=== PATIENT | female | born 2000 | race American Indian/Alaskan Native ===

== ENCOUNTER 2019-04-07 21:58 | Emergency (ER) | payer SELFPAY ==
[2019-04-08 00:18] VITALS: BP 117/59
--- NOTE | 2019-04-08 00:29 | Emergency Department Report ---
Chief Complaint: Anxiety Stated Complaint: HIGH BP Time Seen by Provider: 04/08/19 00:18 - HPI History of Present Illness: Teresa is a very pleasant 18-year-old female with history of anxiety who has felt shaky and stressed at work. She has not needed her hydroxyzine medication for 5 months. She finally took a dose of hydroxyzine last night for 4 days of anxiety and feeling shaky. She was worried about her blood pressure was elevated. He denies suicidal or homicidal ideation. Medical screening exam performed and completed. She does not have a life or limb threatening emergency which further needs further evaluation. Recommended supportive care instructions. Recommended exercise, meditation and generally. She will follow up with her primary care physician. - Exam Vital Signs: Vital Signs 04/07/19 04/08/19 22:06 00:17 Temperature 99.2 F 98 F Pulse Rate 77 65 Respiratory 18 19 Rate Blood Pressure 127/80 Blood Pressure 117/59 [Left] O2 Sat by Pulse 97 98 Oximetry MSE screening note: Focused history and physical exam performed. Due to findings the following was ordered: ED Disposition for MSE Clinical Impression: Anxiety Disposition: Z-07 MED SCREENING EXAM-LEFT Is pt being admited?: No Does the pt Need Aspirin: No Condition: Stable Referrals: [facility] [Outside] - 3-5 Days
== END 2019-04-08 01:03 | disposition left against medical advice (07) ==
LOC: ED 21:58
DX: F41.9 Anxiety disorder, unspecified (principal)
CPT/HCPCS: 99281